=== PATIENT | male | born 1950 | race Two or more races ===

== ENCOUNTER 2021-01-04 07:03 | Day surgery (SDC) | payer OTHER | END 2021-01-04 12:39 | disposition home or self-care (01) | LOC: AMB-ENDOS 07:03 | PROVIDERS: ATTEND Surgery | DX: D12.5 Benign neoplasm of sigmoid colon (principal); K64.8 Other hemorrhoids ==

== ENCOUNTER 2021-01-31 09:45 | Inpatient (IN) | payer OTHER ==
[~2021-01-31] VITALS: Ht 172.7 cm; Wt 69.9 kg
[2021-01-31] MEDS ORDERED: CLONAZEPAM0.5 MG PO (11:57)
[2021-01-31] MEDS ORDERED: PROSCAR5 MG PO (11:58)
[2021-01-31] MEDS ORDERED: TAMS0.4C PO (11:58)
[2021-01-31] MEDS ORDERED: LOSARTAN POTASS25 MG PO (11:59)
[2021-01-31] MEDS ORDERED: CARVEDILOL12.5 MG (11:59)
[2021-01-31] MEDS ORDERED: FENOFIBRATE145 MG PO (12:00)
[2021-01-31] MEDS ORDERED: METFORMIN HCL1000 M2 PO (12:00)
[2021-01-31] MEDS ORDERED: HYDROCHLOROTHIA25 MG PO (12:01)
[2021-02-04] MEDS ORDERED: ULTRACET PO (11:10)
[2021-02-04] MEDS ORDERED: PRILOSEC OTC20 MG PO (11:10)
== END 2021-02-04 12:41 | disposition home or self-care (01) | DRG 329 ==
LOC: O/R 02-02 05:40 → SURH 02-02 05:40
PROVIDERS: ADMIT Surgery; ATTEND Surgery
PROC: 0DBP4ZZ Excision of Rectum, Percutaneous Endoscopic Approach (ICD-10-PCS; 2021-02-02)
PROC: 0DJD8ZZ Inspection of Lower Intestinal Tract, Via Natural or Artificial Opening Endoscopic (ICD-10-PCS; 2021-02-02)
PROC: 0DTN4ZZ Resection of Sigmoid Colon, Percutaneous Endoscopic Approach (ICD-10-PCS; principal; 2021-02-02 10:30)
DX: K57.20 Diverticulitis of large intestine with perforation and abscess without bleeding (principal); K65.1 Peritoneal abscess; R10.32 Left lower quadrant pain; K63.5 Polyp of colon; I11.9 Hypertensive heart disease without heart failure